=== PATIENT | female | born 1990 | race Caucasian/White ===

== ENCOUNTER → 2018-07-30 12:26 | Outpatient (CLI) | payer OTHER, MEDICAID, SELFPAY ==
[2018-07-30 13:40] LABS: Appearance Urine UA CLEAR; Bilirubin Urine UA NEGATIVE (NEGATIVE); Color Urine UA YELLOW; Glucose Urine UA NEGATIVE (Negative); Ketones Urine UA NEGATIVE (NEGATIVE); Leukocyte Esterase Urine UA 3+ (NEGATIVE); Nitrite Urine UA NEGATIVE (Negative); Occult Blood Urine UA TRACE-INTACT (Negative); Protein Urine UA NEGATIVE (Negative); Specific Gravity Urine UA 1.015 (1.000-1.035); Urobilinogen Urine UA 0.2 E.U./dL (0.2)
[2018-07-30 13:42] LABS: Add Manual Diff / Slide Review NO; Basophils Absolute Auto 0 /uL (0-100); Basophils Percent Auto 0.4 % (0-2); Eosinophils Absolute Auto 100 /uL (0-450); Hematocrit 38.3 % (36-46); Hemoglobin 13.6 g/dL (12.0-16.0); Lymphocytes Absolute Auto 2200 /uL (1100-4500); Lymphocytes Percent Auto 24.9 % (25-40); Mean Corpuscular HGB Conc 35.4 % (30-36); Mean Corpuscular Hemoglobin 30.2 PG (26-34); Mean Corpuscular Volume 85.2 fL (80-100); Monocytes Absolute Auto 500 /uL (0-900); Monocytes Percent Auto 5.5 % (3-14); Neutrophils Absolute Auto 5900 /uL (1500-7000); Neutrophils Percent Auto 68.2 % (50-75); Platelet Count 215 X10^3/uL (150-400); Red Blood Cell Count 4.49 X10^6/uL (4.0-5.2); Red Cell Distribution Width 12.7 % (11.6-14.8); White Blood Cell Count 8.7 X10^3/uL (4.5-11.0)
[2018-07-30 14:09] LABS: RBC Urine 0-1/HPF (0-5/HPF); WBC Urine 10-30/HPF (0-5/HPF)
[2018-07-30 14:10] LABS: Amorphous Sediment Urine 1+; Squamous Epithelial Cell Urine 5-10 /HPF (0-5/HPF)
[2018-07-30 14:11] LABS: Bacteria Urine Moderate (10-30); Culture Indicated Urine Specimen Cultured; Mucus Urine 1+ (Negative)
[2018-07-30 17:39] LABS: Hepatitis B Surface Antigen NEGATIVE s/c (NEGATIVE); Rubella Antibody IgG 25.7 IU/mL (>15)
[2018-07-30 18:18] LABS: HIV 1 and 2 Antibody NEGATIVE (NEGATIVE); Hep C Virus Ab w/Reflex Quant NEGATIVE s/c (NEGATIVE)
[2018-08-01 13:27] LABS: RPR Screen Nonreactive (Nonreactive)
[2018-08-02 15:36] LABS: CMV IgG Antibody < 0.60 U/mL (< 0.60); CMV IgM Antibody < 30.00 AU/mL (< 30.00)
== END ==
PROVIDERS: Visit Provider Family Medicine
DX: Z34.81 Encounter for supervision of other normal pregnancy, first trimester (principal); R50.9 Fever, unspecified
CPT/HCPCS: 36415; 80055; 81003; 81015; 86644; 86645; 86703; 86777; 86778; 86787; 86803; 86850; 86900; 86901; 87077; 87086

== ENCOUNTER → 2018-07-31 11:58 | Outpatient (CLI) | payer OTHER, MEDICAID, SELFPAY ==
[2018-07-31 12:10] LABS: Specimen Label NATERA KIT
== END ==
PROVIDERS: Visit Provider Family Medicine
DX: R50.9 Fever, unspecified (principal)
CPT/HCPCS: 36415; 99001

== ENCOUNTER → 2018-09-23 11:18 | Outpatient (CLI) | payer OTHER, MEDICAID, SELFPAY ==
--- NOTE | 2018-09-23 11:19 | DI.US.S_ITS ---
PROCEDURE: US OB >= 14 WEEKS FETUS INDICATIONS: ANATOMY SCAN OUTSIDE/PRIOR DATING DATA: Last menstrual period (LMP): 05/18/18. LMP-based estimated date of delivery (DEIRDRE): 02/22/19. First dating scan (date and location): 09/23/18, this study.. Estimated date of delivery (DEIRDRE) from first dating scan: 02/20/19.. TECHNIQUE: Real-time scanning was performed of the fetus, with image documentation and biometric measurements. Endovaginal scanning: Not needed for this study. COMPARISON: None. FINDINGS: General: A single living intrauterine gestation is present. Presentation: Vertex. Placenta: Placental position is anterior, without previa. Amniotic fluid index: 13.7 cm, normal range is 5-24 cm. heart rate: 155 beats per minute. Maternal cervical canal: 4.3 cm long. Normal lower limit is 2.5 cm. biometrics: Biparietal diameter: 4.3 cm, 18 weeks 6 days Head circumference: 15.4 cm, 18 weeks 3 days Abdominal circumference: 13.5 cm, 18 weeks 6 days Femur length: 2.7 cm, 18 weeks 1 day Estimated gestational age from initial scan: not applicable. Composite gestational age from present scan: 18 weeks 4 days Estimated weight and percentile: 247 g, 60 fourths and L. Measurement variability for biometric dating: +/- 7 days from 14 weeks to 15 weeks 6 days gestation, +/- 10 days from 16 weeks to 21 weeks 6 days gestation, +/- 2 weeks from 22 weeks to 27 weeks 6 days gestation, +/- 3 weeks for 28 weeks gestation or later. weight reference: 4500 g or EFW >90/95% is considered macrosomia or large for gestational age. EFW <10% is small for gestational age. EFW 5% or less is considered intra-uterine growth restriction. Anatomic survey: Neuro: Ventricles are non-dilated at less than 10 mm. Cisterna magna is normal at 3-11 mm. Cerebellum is normal in size and morphology. Nuchal skin fold: Normal at less than 6 mm between 14-21 weeks gestational age. Face: Nose and lips, facial profile are normal. Spine: No evidence for spina bifida. Heart: 4-chambered heart is present, with normal ventricular outflow tracts. Diaphragm: Diaphragm is intact. Stomach: Left-sided stomach is present. Kidneys: No hydronephrosis. Normal is less than 5 mm in 2nd trimester, less than 7 mm in 3rd trimester. Cord: 3-vessel cord has orthotopic insertion. Bladder: Normal in size. Extremities: All 4 extremities identified. IMPRESSION: Normal survey of anatomy, the fetus currently has an estimated gestational age of 18 weeks 4 days, and the delivery date is projected to be centered on 02/20/19. Dictated by: Brodie Johnson M.D. on 09/23/2018 at 16:39 Approved by: Brodie Johnson M.D. on 09/23/2018 at 16:41
== END ==
PROVIDERS: Visit Provider Family Medicine
DX: Z34.81 Encounter for supervision of other normal pregnancy, first trimester (principal); Z3A.18 18 weeks gestation of pregnancy
CPT/HCPCS: 76811

== ENCOUNTER → 2018-12-02 13:30 | Outpatient (CLI) | payer OTHER, MEDICAID, SELFPAY ==
[2018-12-02 16:03] LABS: GTT (PREG) 1 Hour PP 50gm Dose 125 mg/dL (76-139)
[2018-12-02 16:11] LABS: Hematocrit 36.2 % (36-46); Hemoglobin 12.4 g/dL (12.0-16.0)
== END ==
PROVIDERS: Family Provider Family Medicine; PCP Family Medicine; Visit Provider Family Medicine
DX: Z34.90 Encounter for supervision of normal pregnancy, unspecified, unspecified trimester (principal); Z3A.26 26 weeks gestation of pregnancy
CPT/HCPCS: 36415; 82950; 85014; 85018

== ENCOUNTER → 2019-02-03 11:34 | Outpatient (CLI) | payer OTHER, MEDICAID, SELFPAY ==
[2019-02-04 08:13] LABS: Strep Grp B PCR POS for Grp B Strep
== END ==
PROVIDERS: Family Provider Family Medicine; Visit Provider Family Medicine
DX: Z34.90 Encounter for supervision of normal pregnancy, unspecified, unspecified trimester (principal); Z3A.37 37 weeks gestation of pregnancy
CPT/HCPCS: 87653

== ENCOUNTER 2019-02-17 10:48 | Inpatient (IN) | payer OTHER, MEDICAID, SELFPAY ==
[2019-02-17 12:02] LABS: Add Manual Diff / Slide Review NO; Basophils Absolute Auto 0 /uL (0-100); Basophils Percent Auto 0.4 % (0-2); Eosinophils Absolute Auto 0 /uL (0-450); Eosinophils Percent Auto 0.4 % (2-4); Hematocrit 38.7 % (36-46); Hemoglobin 13.5 g/dL (12.0-16.0); Lymphocytes Absolute Auto 1500 /uL (1100-4500); Lymphocytes Percent Auto 17.9 % (25-40); Mean Corpuscular HGB Conc 34.8 % (30-36); Mean Corpuscular Hemoglobin 31.4 PG (26-34); Mean Corpuscular Volume 90.1 fL (80-100); Monocytes Absolute Auto 400 /uL (0-900); Monocytes Percent Auto 5.5 % (3-14); Neutrophils Absolute Auto 6200 /uL (1500-7000); Neutrophils Percent Auto 75.8 % (50-75); Platelet Count 166 X10^3/uL (150-400); Red Blood Cell Count 4.29 X10^6/uL (4.0-5.2); Red Cell Distribution Width 13.6 % (11.6-14.8); White Blood Cell Count 8.2 X10^3/uL (4.5-11.0)
--- NOTE | 2019-02-17 12:30 | P.HPOB_ITS ---
OB HPI Date/Time Date of admission: 02/17/19 Date Patient Seen: 02/17/19 Time Patient Seen: 13:00 History of Present Condition Chief complaint: 30890 : 2 Para: 1 Estimated Date of Delivery: 02/22/19 Estimated Gestational Age (weeks): 39w2d Narrative: Laury Engle is a 28 year old at 39w2d who presented for repeat . No bleeding, LOF. Pt has been feeling her baby move regularly. Indications Operative indications ( section): previous uterine surgery History of Present care: good care, initiated at week # (9) and pounds weight gain (42) Dating criteria: LMP confirmed by 1st trimester US Ultrasounds: normal 1st trimester US and normal mid trimester US Obstetrical complications: none Medical complications: none Preadmission Labs Blood type: O (+) positive -: Antibody screen: negative, GBS status: positive, HBsAG: negative, HIV: negative and RPR/VDLR: negative -: Rubella: immune and Varicella: immune HCT: 36.2 HCAB: negative 1 hr GTT: 125 Prior (ies) History: primary at 39w5d in [place] - uncertain why, 7lb1oz Evaluation Evaluation Baseline heart rate: 140 Variability: Moderate (11-25) monitor accelerations: Present monitor decelerations: Absent Category of Tracing: I Laboratory results: Laboratory Tests 02/17/19 11:30 WBC 8.2 RBC 4.29 Hgb 13.5 Hct 38.7 MCV 90.1 MCH 31.4 MCHC 34.8 RDW 13.6 Plt Count 166 Neut % (Auto) 75.8 H Lymph % (Auto) 17.9 L [place] % (Auto) 5.5 Eos % (Auto) 0.4 L Baso % (Auto) 0.4 Neut # (Auto) 6200 Lymph # (Auto) 1500 [place] # (Auto) 400 Eos # (Auto) 0 Baso # (Auto) 0 PFSH Social History Smoking Status: Never smoker Meds Home Medications and Allergies Home Medications Medication Instructions Recorded Confirmed Type prenat.vits,anoop,nyn-zbjm-gdjkb 1 tab PO DAILY 07/18/18 07/26/18 History Allergies Allergy/AdvReac Type Severity Reaction Status Date / Time No Known Drug Allergies Allergy Verified 07/26/18 10:14 Exam Const General: cooperative, healthy appearing, comfortable, well developed and well groomed Resp Effort & Inspection: normal respiratory effort Auscultation: clear to auscultation bilaterally Cardio Rate: regular rate Rhythm: regular rhythm Heart Sounds: S1 normal, S2 normal and no murmurs GI Palpation: soft and No tender Auscultation: normal bowel sounds Other: gravid Skin General: no rashes or lesions noted Extrem General: No edema Objective Labs Result Diagrams: 02/17/19 11:30 Labs: Laboratory Results - last 24 hr 02/17/19 11:30 WBC 8.2 RBC 4.29 Hgb 13.5 Hct 38.7 MCV 90.1 MCH 31.4 MCHC 34.8 RDW 13.6 Plt Count 166 Neut % (Auto) 75.8 H Lymph % (Auto) 17.9 L [place] % (Auto) 5.5 Eos % (Auto) 0.4 L Baso % (Auto) 0.4 Neut # (Auto) 6200 Lymph # (Auto) 1500 [place] # (Auto) 400 Eos # (Auto) 0 Baso # (Auto) 0 Assessment and Plan Assessment and Plan Assessment and Plan narrative: 28yo at 39w2d who presented for scheduled repeat . Will receive 2g Ancef prior to surgery. Discussed risks of surgery including but not limited to infection, bleeding, damage to other organs including bowel and bladder, injury to fetus. Discussed alternatives including . Pt consents to surgery. Consent signed and placed in chart. Pt is agreeable to blood transfusion if indicated.
--- NOTE | 2019-02-17 12:30 | PM.PREOP ---
Pre-operative Note Interval Note History & Physical reviewed/Exam performed by Physician: Yes Changes to H&P: No
[2019-02-17] MEDS: LACTATED RINGERS 1,000 ML 1000 ML IV ×3 (13:05→14:26)
[2019-02-17 13:29] VITALS: BP 107/64
[2019-02-17] MEDS: CEFAZOLIN 2 GM/100 ML FROZ.PIGGY IV (13:53)
--- NOTE | 2019-02-17 14:14 | SUR.OPER ---
Supine on Padded OR bed, head on pillow, safety belt at thigh, arms secured on padded arm boards at <90 degrees abduction. Bump under right buttock. Legs uncrossed with pillow under knees, gel pad to heels, tape over blanket to lower legs.
--- NOTE | 2019-02-17 14:25 | SUR.OPER ---
live male at 1418. apgars 9
[2019-02-17 15:00] VITALS: BP 99/59; PULSE 74; RESP 16; TEMP 36.4; O2SAT 100
--- NOTE | 2019-02-17 15:04 | P.OP_ITS ---
Operative Date/Time/Diagnoses Date of procedure: 02/17/19 Time of procedure: 14:00 Pre-op diagnosis: Hx of prior at 39w2d Post-op diagnosis: same Procedure & Clinicians Procedure: Repeat Same procedure as scheduled: Yes Indications: Hx of prior Surgeon: Luanne Trejo [employer] Administrator: Katia Back Click Yes if Unassisted: No Anesthesia Type: Spinal Operative Notes Findings: Normal uterus, ovaries, and tubes Closure Type: primary Specimen(s): none sent Applied: catheter Estimated Blood Loss (mL): 500 Blood products transfused: none Procedure in detail: OPERATIVE COURSE: The patient was taken to the operating room where spinal anesthesia was placed. She was then prepared and draped in the normal sterile fashion in the dorsal supine position with a leftward tilt. Anesthesia was tested and found to be adequate. A Pfannensteil skin incision was then made with the scalpel and carried through to the underlying layer of fascia with the scalpel. The fascia was incised in the midline and the incision extended laterally with the Bello scissors. The superior aspect of the fascial incision was then grasped with Dana clamps, elevated, and the underlying rectus muscles dissected off bluntly and sharply where needed. Attention was then turned to the inferior aspect of the incision which, in a similar fashion, was grasped, tented up with Dana clamps, and the rectus muscle dissected off bluntly and sharply with Bello scissors. The rectus muscles were then in the midline, and the peritoneum was identified and entered bluntly. The peritoneal incision was then extended with good visualization of the bladder. The bladder blade was then inserted and the vesicouterine peritoneum identified, grasped with pick-ups and entered sharply with the Metzenbaum scissors. The incision was then extended laterally and the bladder flap created digitally. The bladder blade was then reinserted and the lower uterine segment incised in a transverse fashion with the scalpel. The uterine incision was then extended superolaterally by pulling superolaterally on both sides. Membranes were ruptured and fluid was clear. The bladder blade was removed the infant's head was flexed out of OA position and delivered atraumatically. The nose and mouth were suctioned with bulb suction and the cord was clamped and cut. The infant was handed off to the waiting nursing staff. Cord blood was collected for Rh status. The placenta was then delivered by manual extraction due to partial avulsion with cord traction. The uterus was then cleared of all clots and debris. The uterine incision was repaired with O-Vicryl in a running, locked fashion. A second layer of the same suture was used to obtain excellent hemostasis. The gutters were cleared of all clots. Hysterotomy was investigated and found to be hemostatic. The peritoneum was closed with 3-O Vicryl. The fascia was reapproximated with O Vicryl in a running fashion. The subcutaneous tissue was reapproximated with 3-O Vicryl. The skin was closed with 4-O Vicryl. ROM APPEARANCE: Clear BABY A DELIVERY TIME: 14:18 BABY A OUTCOME: Viable BABY A SEX: Male BABY A WEIGHT: [id number] BABY A NUCHAL CORD: x1 BABY A # CORD VESSELS: 3 BABY A 1 MINUTE: 9 BABY A 5 MINUTES: 9 PLACENTA DELIVERY TIME: 14:19 PLACENTA APPEARANCE: Intact COMPLICATIONS: None SPONGE AND NEEDLE COUNTS: Correct x3. DRESSING: Aquacel ANTICOAGULATION: SCDs applied prior to Surgery: Yes Preop antibiotics given (see MAR). The patient was taken to recovery room having tolerated procedure well. Complications: none Post-operative Condition: stable Disposition: PACU Plan for aftercare: Normal postoperative care
[2019-02-17 15:05] VITALS: BP 101/54; PULSE 70; RESP 17; O2SAT 98
[2019-02-17 15:10] VITALS: BP 101/56; PULSE 75; RESP 17; O2SAT 98
[2019-02-17 15:15] VITALS: BP 101/53; PULSE 80; RESP 16; O2SAT 98
[2019-02-17 15:25] VITALS: BP 101/53; PULSE 68; RESP 17; TEMP 36.7; O2SAT 97
--- NOTE | 2019-02-17 15:26 | SUR.PHASEI ---
praveen pad changed for small amt drainage, 200cc clear yellow urine emptied from infante, report to OB RN
[2019-02-17] MEDS: KETOROLAC 30 MG/ML VIAL IV (20:20)
[2019-02-18] MEDS: KETOROLAC 30 MG/ML VIAL IV ×2 (02:33→08:43)
[2019-02-18 07:34] LABS: Add Manual Diff / Slide Review NO; Basophils Absolute Auto 0 /uL (0-100); Basophils Percent Auto 0.1 % (0-2); Eosinophils Absolute Auto 0 /uL (0-450); Eosinophils Percent Auto 0.3 % (2-4); Hematocrit 35.3 % (36-46); Hemoglobin 12.2 g/dL (12.0-16.0); Lymphocytes Absolute Auto 2100 /uL (1100-4500); Lymphocytes Percent Auto 17.5 % (25-40); Mean Corpuscular HGB Conc 34.4 % (30-36); Mean Corpuscular Hemoglobin 31.3 PG (26-34); Monocytes Absolute Auto 800 /uL (0-900); Monocytes Percent Auto 6.6 % (3-14); Neutrophils Absolute Auto 9200 /uL (1500-7000); Neutrophils Percent Auto 75.5 % (50-75); Platelet Count 147 X10^3/uL (150-400); Red Blood Cell Count 3.88 X10^6/uL (4.0-5.2); Red Cell Distribution Width 13.6 % (11.6-14.8); White Blood Cell Count 12.1 X10^3/uL (4.5-11.0)
[2019-02-18] MEDS: DOCUSATE 250 MG CAPSULE PO (08:37)
[2019-02-18] MEDS: OXYCODONE/ACETAMINOPHEN 5/325 TABLET 2 TAB PO (08:37)
[2019-02-18] MEDS: PRENATAL VIT,CALC/IRON/FOLIC 1 TABLET 1 TAB PO (08:37)
[2019-02-18] MEDS: LANOLIN OINT 7 GM 1 APPLIC TOP (08:38)
--- NOTE | 2019-02-18 13:11 | PM.OBPN.1 ---
Subjective - OB Subjective Date Patient Seen: 02/18/19 Time Patient Seen: 08:00 Interval history: The patient has no specific complaints today. She is overall feeling well. Her pain is adequately controlled. She has her [place] in place still, and has not yet ambulated or voided. She has not yet passed flatus. She is breast-feeding with good latch. Her lochia is appropriate. Exam Vital Signs (past 8 hours): Oxygen Delivery Method Room Air Narrative Exam Narrative: General: No acute distress, sitting comfortably in bed, appears well CV: Regular rate rhythm, no murmurs Respiratory: Clear to auscultation bilaterally Abdomen: Soft, appropriately tender she, dressing clean/dry/intact with small approximately nickel sized amount of dry blood in the right side, fundus firm and well below the umbilicus Extremities: No edema Objective Labs Result Diagrams: 02/18/19 06:35 Labs: Laboratory Results - last 24 hr 02/17/19 02/18/19 11:30 06:35 WBC 12.1 H RBC 3.88 L Hgb 12.2 Hct 35.3 L MCV 91.0 MCH 31.3 MCHC 34.4 RDW 13.6 Plt Count 147 L Neut % (Auto) 75.5 H Lymph % (Auto) 17.5 L [place] % (Auto) 6.6 Eos % (Auto) 0.3 L Baso % (Auto) 0.1 Neut # (Auto) 9200 H Lymph # (Auto) 2100 [place] # (Auto) 800 Eos # (Auto) 0 Baso # (Auto) 0 Blood Type O Positive Antibody Screen Negative Assessment & Plan Assessment and Plan (1) Status post repeat low transverse section: Status: Acute Assessment and plan: 28-year-old postop day #1 status post repeat . Patient doing well. No concerns at this time. - Normal care - support Current Visit: Yes Time Spent With Patient Time: Total time spent is greater than 50% in coordination of care (as documented) at patient's floor/unit and/or counseling patient: Time with patient: 15-24 minutes
[2019-02-18] MEDS: OXYCODONE/ACETAMINOPHEN 5/325 TABLET 1 TAB PO ×3 (14:43→23:58)
[2019-02-18] MEDS: IBUPROFEN 600 MG TABLET PO ×2 (15:20→21:29)
[2019-02-19] MEDS: IBUPROFEN 600 MG TABLET PO ×2 (03:34→09:50)
[2019-02-19] MEDS: OXYCODONE/ACETAMINOPHEN 5/325 TABLET 1 TAB PO ×2 (05:32→09:50)
--- NOTE | 2019-02-19 08:52 | P.DS_ITS ---
Discharge Providers Provider Date of admission: 02/17/19 10:48 Discharge Date: 02/19/19 Primary care physician: Luanne Trejo MD Consults: 02/17/19 15:49 Consult to Referral Management Liaison Routine Comment: Discharge provider: Luanne Trejo MD Summary Hospital Course Date Patient Seen: 02/19/19 Time Patient Seen: 07:45 Procedures: Repeat Hospital Course: The patient was admitted for scheduled repeat . The surgery was without complications. She delivered a viable baby boy. , there were no complications. At the time of discharge she was voiding, ambulating, and passing flatus without difficulty. Her lochia was decreasing appropriately. Her pain was adequately controlled. She is breast-feeding with good latch. She will follow-up in 1 week in [place] for an incision check and dressing removal. She will then follow-up for 6 week appointment. She is undecided regarding contraception. Peripartum Data Delivery Method: Section Procedures: Repeat complications: none 1: Gender: Male Disposition of : home Discharge Diagnosis (1) Status post repeat low transverse section: Status: Acute Status at Discharge Cognitive/behavioral status at discharge: oriented Functional status at discharge: independent ambulation Overall status at discharge: patient is progressing back to baseline Time Spent with Patient Time attestation: Total time spent providing and/or coordinating discharge services: Time spent: Greater than 30 minutes Objective Labs Result Diagrams: 02/18/19 06:35 Exam Vital Signs (past 8 hours): Oxygen Delivery Method Room Air Narrative Exam Narrative: General: No acute distress, sitting comfortably in bed, appears well CV: Regular rate and rhythm, no murmurs Respiratory: Clear to auscultation bilaterally Abdomen: Soft, appropriately tender, nondistended, fundus firm below umbilicus, dressing clean dry and intact Extremities: Trace edema Discharge Plan Discharge Plan Patient Disposition: Home Discharge orders & Medications Prescriptions: New acetaminophen 325 mg Tablet 650 mg PO Q6HR PRN (Reason: Fever/Mild Pain (1-3)) Qty: 30 RF: 0 ibuprofen 600 mg Tablet 600 mg PO Q6H PRN (Reason: Fever/Mild Pain (1-3)) Qty: 30 RF: 0 docusate sodium 250 mg Capsule 250 mg PO DAILY Qty: 30 RF: 0 Equ-U-Nwyjmb Cream 1 applic topical PRN PRN (Reason: ) Qty: 28 RF: 0 oxycodone-acetaminophen 5-325 mg Tablet 1 tab PO Q4HR PRN (Reason: Pain, Severe (7-10)) Qty: 30 RF: 0 Continued prenat.vits,anoop,iol-hgjp-drtcq tablet 1 tab PO DAILY RF: 0 Follow up/Referrals: Luanne Trejo MD [Primary Care Provider] - (please follow up w/ your doctor on Sunday, Feb 24, 2019 for an incision check.) Diet/Activity/Treatments Diet: Regular Skin/Wound/Dressing Care Report to your healthcare provider any signs of infection, such as:: chills, fever, increased pain, unusual drainage and unusual redness Visit Report/Discharge Packet Instructions: DI for Stand Alone Forms: Discharge: Care Visit Report Forms: Patient Portal/API, Stroke Signs & Symptoms Discharge Data Primary Care Provider: Luanne Trejo
[2019-02-19] MEDS: PRENATAL VIT,CALC/IRON/FOLIC 1 TABLET 1 TAB PO (09:51)
[2019-02-19] MEDS: DOCUSATE 250 MG CAPSULE PO (09:51)
== END 2019-02-19 11:40 | disposition home or self-care (01) | DRG 540 ==
PROVIDERS: Admitting Provider Family Medicine; Family Provider Family Medicine; PCP Family Medicine; Visit Provider Family Medicine
PROC: 10D00Z1 Extraction of Products of Conception, Low, Open Approach (ICD-10-PCS; CPT 59514; principal; 2019-02-17 13:30)
DX: O34.219 Maternal care for unspecified type scar from previous cesarean delivery (principal); Z3A.39 39 weeks gestation of pregnancy; Z37.0 Single live birth; O99.824 Streptococcus B carrier state complicating childbirth
CPT/HCPCS: 36415; 59050; 59510; 59514; 85025; 86850; 86900; 86901; J0690; J1100; J1885; J2274; J2405; J2590